=== PATIENT | female | born 1950 | race Hispanic/Latino ===

== ENCOUNTER → 2022-07-25 | Outpatient (CLI) | payer OTHER | END | disposition home or self-care (01) | LOC: RAH 10:50 | PROVIDERS: ATTEND Internal Medicine Critical Care Medicine | DX: R09.89 Other specified symptoms and signs involving the circulatory and respiratory systems (principal) | CPT/HCPCS: 93922 ==

== ENCOUNTER → 2022-10-04 | Outpatient (CLI) | payer OTHER | END | disposition home or self-care (01) | LOC: RAH 14:20 | PROVIDERS: ATTEND Internal Medicine Critical Care Medicine | DX: I65.23 Occlusion and stenosis of bilateral carotid arteries (principal) | CPT/HCPCS: 93880 ==